=== PATIENT | female | born 1950 | race Caucasian/White ===

== ENCOUNTER 2017-08-28 06:53 | Day surgery (SDC) | payer OTHER ==
[2017-08-16 12:01] VITALS: BMI 33.6
[2017-08-28 09:51] VITALS: TEMP 98.1
[2017-08-28 10:29] VITALS: BP 122/62; PULSE 80
== END 2017-08-28 10:25 | disposition home or self-care (01) ==
LOC: FASU 06:53
PROVIDERS: ATTEND Ophthalmology
PROC: 08RK3JZ Replacement of Left Lens with Synthetic Substitute, Percutaneous Approach (ICD-10-PCS; principal; 2017-08-28)
DX: H26.8 Other specified cataract (principal)

== ENCOUNTER 2018-07-08 00:40 | Emergency (ER) | payer OTHER ==
[2018-07-08 01:01] VITALS: BP 159/84; PULSE 85; TEMP 97.7; BMI 38.1
--- NOTE | 2018-07-08 01:38 | PDOC ---
Attending Attestation - Resident Resident Name: Segundo Cuenca - ED Attending Attestation I have performed the following: I have examined & evaluated the patient, The case was reviewed & discussed with the resident, I agree w/resident's findings & plan - HPI HPI: 07/08/18 01:50 68-year-old female with leakage from her left breast wound, status post lumpectomy one week ago. Patient denies nausea vomiting fever or trauma. She was concerned that it might be blood. - Physicial Exam PE: 07/08/18 01:50 Agree with resident's exam - Medical Decision Making 07/08/18 01:51 68-year-old female with left breast wound drainage Drainage is serial sanguinous and minimal There are no secondary signs of infection Patient advised to call his surgeon in the morning to follow-up with [facility] A call was placed to the surgeon's service, currently awaiting a call back
--- NOTE | 2018-07-08 01:51 | PDOC ---
History of Present Illness - General Chief Complaint: Wound Stated Complaint: BLEEDING WOUND Time Seen by Provider: 07/08/18 01:33 History Source: Patient Exam Limitations: No Limitations - History of Present Illness Initial Comments: 07/08/18 01:46 68F with pmh of breast cancer s/p lumpectomy of the left breast (last of which was last Saturday the ) presents with red-tinged drainage from the surgical wound around midnight. She denies being in pain. .This is her second surgery done, next is due July 21. Surgeon is Denise Giron @ [facility] in [place], [place] Past History - Past Medical History Allergies/Adverse Reactions: Allergies Allergy/AdvReac Type Severity Reaction Status Date / Time No Known Drug Allergies Allergy Verified 05/25/15 08:16 Home Medications: Ambulatory Orders Escitalopram Oxalate [Lexapro -] 15 mg PO DAILY 03/23/15 Lansoprazole [Prevacid -] 30 mg PO DAILY 03/23/15 Losartan Potassium 100 mg PO DAILY 03/23/15 Anemia: No Asthma: No Cancer: Yes (DCIS LEFT BREAST) Cardiac Disorders: No CVA: No COPD: No CHF: No Dementia: No Diabetes: No GI Disorders: Yes (DYSPHAGIA, MOE'S ESOPHAGUS) Disorders: No HTN: Yes Hypercholesterolemia: No Liver Disease: No Seizures: No Thyroid Disease: No - Surgical History Abdominal Surgery: Yes (LAP BANDING (2007)-Removed 04/2016) Appendectomy: Yes Cardiac Surgery: No Cholecystectomy: No Lung Surgery: No Neurologic Surgery: No Orthopedic Surgery: Yes (CARPAL TUNNEL RIGHT HAND) - Suicide/Smoking/Psychosocial Hx Smoking History: Unknown if ever smoked Have you smoked in the past 12 months: No If you are a former smoker, when did you quit?: 30+ YEARS AGO Information on smoking cessation initiated: No Hx Alcohol Use: No Drug/Substance Use Hx: No Substance Use Type: None Hx Substance Use Treatment: No Review of Systems - Review of Systems Able to Perform ROS?: Yes Is the patient limited Azerbaijani proficient: No Constitutional: No: Symptoms Reported HEENTM: No: Symptoms Reported Respiratory: No: Symptoms reported Cardiac (ROS): No: Symptoms Reported ABD/GI: No: Symptoms Reported : No: Symptoms Reported Musculoskeletal: No: Symptoms Reported Integumentary: Yes: See HPI All Other Systems: Reviewed and Negative *Physical Exam - Vital Signs Last Vital Signs Temp Pulse Resp BP Pulse Ox 97.7 F 85 20 159/84 95 07/08/18 00:50 07/08/18 00:50 07/08/18 00:50 07/08/18 00:50 07/08/18 00:50 - Physical Exam General Appearance: Yes: Nourished, Appropriately Dressed, Apparent Distress HEENT: positive: EOMI, BRIAN, Normal ENT Inspection Neck: positive: Tender Respiratory/Chest: positive: Lungs Clear, Normal Breath Sounds. negative: Chest Tender, Respiratory Distress Cardiovascular: positive: Regular Rhythm, Regular Rate, S1, S2 Gastrointestinal/Abdominal: positive: Normal Bowel Sounds, Flat, Soft. negative : Tender Musculoskeletal: positive: Normal Inspection Extremity: positive: Normal Capillary Refill, Normal Inspection, Normal Range of Motion Integumentary: positive: Normal Color, Dry, Warm, Other (Surgical scar over inferior aspect of the left breast. Sutures intact, however there is active sero -sanguinous drainage from a 0.5cm opening over the scar. No sign of infection. ) . negative: Swelling, Ecchymosis, Bruising Neurologic: positive: Fully Oriented, Alert, Normal Mood/Affect, Normal Response , Motor Strength 5/5 Moderate Sedation - Procedure Monitoring Vital Signs: Procedure Monitoring Vital Signs Temperature 97.7 F 07/08/18 00:50 Pulse Rate 85 07/08/18 00:50 Respiratory Rate 20 07/08/18 00:50 Blood Pressure 159/84 07/08/18 00:50 O2 Sat by Pulse Oximetry (%) 95 07/08/18 00:50 Medical Decision Making - Medical Decision Making 07/08/18 01:55 PLAced a call to surgeon. Waiting information security manager back where we will inform of patient's visit and plan. This is normal sero-sanguinous drainage. Ok to discharge patient who will follow up with Surgeon tomorrow. *DC/Admit/Observation/Transfer Diagnosis at time of Disposition: Drainage from wound - Discharge Dispostion Disposition: HOME Condition at time of disposition: Improved Decision to Admit order: No - Referrals Referrals: Tessa Teran MD [Primary Care Provider] - - Patient Instructions Printed Discharge Instructions: DI for Wound Dehiscence, How to Care for a Surgical Wound Additional Instructions: Follow up with Dr. Giron tomorrow. Come back to the emergency department with any new, worsening or concerning symptoms. - Post Discharge Activity
== END 2018-07-08 02:11 | disposition home or self-care (01) ==
LOC: JER 00:40
DX: T81.31XA Disruption of external operation (surgical) wound, not elsewhere classified, initial encounter (principal); Z85.3 Personal history of malignant neoplasm of breast; Z98.890 Other specified postprocedural states
CPT/HCPCS: 99281-25